=== PATIENT | male | born 1990 | race Two or more races ===

== ENCOUNTER 2016-08-05 10:17 | Emergency (ER) | payer OTHER ==
[~2016-08-05] VITALS: Ht 172.7 cm; Wt 79.4 kg
[2016-08-05 10:18] VITALS: BP 121/71
== END 2016-08-05 11:38 | disposition home or self-care (01) ==
LOC: ER 10:18
DX: T23.112A Burn of first degree of left thumb (nail), initial encounter (principal); X10.2XXA Contact with fats and cooking oils, initial encounter; Y93.89 Activity, other specified; Y92.090 Kitchen in other non-institutional residence as the place of occurrence of the external cause; Y99.9 Unspecified external cause status
CPT/HCPCS: 99281; A4606; Z7610; Z7502

== ENCOUNTER 2016-08-07 11:05 | Emergency (ER) | payer OTHER ==
[~2016-08-07] VITALS: Ht 177.8 cm; Wt 83.9 kg
[2016-08-07 11:26] VITALS: BP 143/84
== END 2016-08-07 11:38 | disposition home or self-care (01) ==
LOC: ER 11:11
DX: T22.012D Burn of unspecified degree of left forearm, subsequent encounter (principal); X58.XXXA Exposure to other specified factors, initial encounter; Y93.89 Activity, other specified; Y92.89 Other specified places as the place of occurrence of the external cause; Y99.8 Other external cause status; Z88.1 Allergy status to other antibiotic agents
CPT/HCPCS: 99281; A4606; Z7610; Z7502